=== PATIENT | female | born 1930 | race Caucasian/White ===

== ENCOUNTER 2016-07-25 19:35 | Inpatient (IN) | payer MEDICARE, BC ==
[~2016-07-25] VITALS: Ht 149.9 cm; Wt 64.8 kg
[2016-07-25] MEDS ORDERED: CEFTRIAXONE 1 GM VIAL ONE (22:19)
[2016-07-25] MEDS ORDERED: SODIUM CHLORIDE 0.9% 100 ML IV ONE (22:20)
[2016-07-25] MEDS ORDERED: PHARMACY TO DOSE LEVAQUIN IV SCH (23:45)
[2016-07-25] MEDS ORDERED: ONDANSETRON 4 MG VIAL IV PRN (23:45)
[2016-07-25] MEDS ORDERED: SODIUM CHLORIDE 0.9% 1,000 ML IV SCH (23:45)
[2016-07-25] MEDS ORDERED: SALINE FLUSH 10 ML FLUSH PRN (23:45)
[2016-07-26] VITALS (7 sets, daily range): BP systolic 117–168; RESP 18; TEMP 98.2–99.1; Ht 149.9 cm; Wt 64.8 kg
[2016-07-26] MEDS ORDERED: LEVOFLOXACIN 750 MG/150 ML 150 ML IV ONE (01:05)
[2016-07-26] MEDS ORDERED: *PINK BRACELET XX ONE (01:10)
[2016-07-26] MEDS: SALINE FLUSH 10 ML FLUSH SCH ×3 (01:41→20:40)
[2016-07-26] MEDS: SODIUM CHLORIDE 0.9% 1,000 ML IV SCH ×2 (01:42→16:05)
[2016-07-26] MEDS: SODIUM CHLORIDE 0.9% FLUSH BAG 500 ML IV SCH (06:00)
[2016-07-26] MEDS: *HOME MEDS KEPT IN PHARMACY XX SCH ×2 (08:00→20:00)
[2016-07-26] MEDS: ATENOLOL 50 MG TAB PO SCH (08:36)
[2016-07-26] MEDS: BUSPIRONE HCL 10 MG TAB PO SCH ×3 (08:36→20:40)
[2016-07-26] MEDS: ASPIRIN 81 MG CHEW TAB PO SCH (08:36)
[2016-07-26] MEDS: ATENOLOL 25 MG TAB PO SCH (17:26)
[2016-07-26] MEDS: TEMAZEPAM 15 MG CAP PO SCH (20:40)
[2016-07-26] MEDS: Atorvastatin 10 MG TAB PO SCH (20:40)
[2016-07-27] VITALS (7 sets, daily range): BP systolic 137–168; RESP 18–20; TEMP 98.4–99.3
[2016-07-27] MEDS: SODIUM CHLORIDE 0.9% FLUSH BAG 500 ML IV SCH (06:00)
[2016-07-27] MEDS: *HOME MEDS KEPT IN PHARMACY XX SCH ×2 (07:56→20:00)
[2016-07-27] MEDS: SALINE FLUSH 10 ML FLUSH SCH ×2 (07:57→20:00)
[2016-07-27] MEDS: ATENOLOL 50 MG TAB PO SCH (08:58)
[2016-07-27] MEDS: BUSPIRONE HCL 10 MG TAB PO SCH ×3 (08:58→20:09)
[2016-07-27] MEDS: ASPIRIN 81 MG CHEW TAB PO SCH (08:58)
[2016-07-27] MEDS: ENOXAPARIN 40 MG/0.4 ML SYR SUBQ SCH (10:16)
[2016-07-27] MEDS: ATENOLOL 25 MG TAB PO SCH (16:24)
[2016-07-27] MEDS: Atorvastatin 10 MG TAB PO SCH (20:09)
[2016-07-27] MEDS: TEMAZEPAM 15 MG CAP PO SCH (20:09)
[2016-07-27] MEDS ORDERED: LEVOFLOXACIN 750 MG/150 ML 150 ML IV SCH (21:00)
[2016-07-28] VITALS (10 sets, daily range): BP systolic 136–169; RESP 16–18; TEMP 98.2–98.8
[2016-07-28] MEDS: SODIUM CHLORIDE 0.9% 1,000 ML IV SCH (01:06)
[2016-07-28] MEDS: SODIUM CHLORIDE 0.9% FLUSH BAG 500 ML IV SCH (06:00)
[2016-07-28] MEDS: *HOME MEDS KEPT IN PHARMACY XX SCH ×2 (08:00→20:00)
[2016-07-28] MEDS: ATENOLOL 50 MG TAB PO SCH ×2 (09:00→17:42)
[2016-07-28] MEDS: ASPIRIN EC 81 MG TAB PO SCH (09:00)
[2016-07-28] MEDS: BUSPIRONE HCL 10 MG TAB PO SCH ×3 (10:57→21:59)
[2016-07-28] MEDS: ENOXAPARIN 40 MG/0.4 ML SYR SUBQ SCH (10:58)
[2016-07-28] MEDS: CLOPIDOGREL 75 MG TAB PO SCH (12:10)
[2016-07-28] MEDS ORDERED: KCL 20 MEQ/15 ML UDC PO ONE (14:15)
[2016-07-28] MEDS ORDERED: MISSING DOSE XX ONE (17:10)
[2016-07-28] MEDS: SALINE FLUSH 10 ML FLUSH SCH ×2 (17:42→21:58)
[2016-07-28] MEDS: ATENOLOL 25 MG TAB PO SCH (17:45)
[2016-07-28] MEDS: VALSARTAN 80 MG TAB PO SCH (21:00)
[2016-07-28] MEDS: TEMAZEPAM 15 MG CAP PO SCH (21:58)
[2016-07-28] MEDS: Atorvastatin 10 MG TAB PO SCH (21:58)
[2016-07-29 03:25] VITALS: BP_SYST 147; RESP 17; TEMP 98.2
[2016-07-29] MEDS: SODIUM CHLORIDE 0.9% FLUSH BAG 500 ML IV SCH (06:00)
[2016-07-29 07:29] VITALS: BP_SYST 150; RESP 16; TEMP 98.3
[2016-07-29] MEDS: *HOME MEDS KEPT IN PHARMACY XX SCH ×2 (08:00→20:00)
[2016-07-29] MEDS ORDERED: LEVOFLOXACIN 750 MG TAB PO SCH (09:00)
[2016-07-29] MEDS: SALINE FLUSH 10 ML FLUSH SCH ×2 (09:04→20:28)
[2016-07-29] MEDS: VALSARTAN 80 MG TAB PO SCH ×2 (09:04→20:28)
[2016-07-29] MEDS: ASPIRIN EC 81 MG TAB PO SCH (09:04)
[2016-07-29] MEDS: CLOPIDOGREL 75 MG TAB PO SCH (09:04)
[2016-07-29] MEDS ORDERED: MISSING DOSE XX ONE (09:05)
[2016-07-29] MEDS: ENOXAPARIN 40 MG/0.4 ML SYR SUBQ SCH (09:05)
[2016-07-29] MEDS: amLODIPine 10 MG TAB PO SCH (09:38)
[2016-07-29] MEDS: BUSPIRONE HCL 10 MG TAB PO SCH ×3 (09:38→20:28)
[2016-07-29 11:52] VITALS: BP_SYST 136; RESP 16; TEMP 98.2
[2016-07-29] MEDS: Carvedilol 6.25 MG TAB PO SCH ×2 (12:45→20:28)
[2016-07-29 16:21] VITALS: BP_SYST 122; RESP 20; TEMP 98.3
[2016-07-29] MEDS ORDERED: MIDAZOLAM 2 MG/2 ML INJ ONE (19:17)
[2016-07-29 19:37] VITALS: BP_SYST 141; RESP 16; TEMP 99.3
[2016-07-29] MEDS: Atorvastatin 10 MG TAB PO SCH (20:28)
[2016-07-29] MEDS: APIXABAN 5 MG TAB PO SCH (20:28)
[2016-07-29] MEDS: TEMAZEPAM 15 MG CAP PO SCH (20:28)
[2016-07-29 23:27] VITALS: BP_SYST 135; RESP 16; TEMP 98.9
[2016-07-30 02:48] VITALS: BP_SYST 132; RESP 16; TEMP 98.5
[2016-07-30] MEDS: SODIUM CHLORIDE 0.9% FLUSH BAG 500 ML IV SCH (06:00)
[2016-07-30 07:44] VITALS: BP_SYST 140; RESP 16; TEMP 98.5
[2016-07-30] MEDS: *HOME MEDS KEPT IN PHARMACY XX SCH ×2 (08:00→14:53)
[2016-07-30] MEDS: APIXABAN 5 MG TAB PO SCH (08:39)
[2016-07-30] MEDS: SALINE FLUSH 10 ML FLUSH SCH (08:39)
[2016-07-30] MEDS: amLODIPine 10 MG TAB PO SCH (08:39)
[2016-07-30] MEDS: VALSARTAN 80 MG TAB PO SCH (08:40)
[2016-07-30] MEDS: BUSPIRONE HCL 10 MG TAB PO SCH (08:40)
[2016-07-30] MEDS: Carvedilol 6.25 MG TAB PO SCH (08:40)
[2016-07-30 11:37] VITALS: BP_SYST 132; RESP 16; TEMP 98.2
[2016-07-30 15:20] VITALS: BP_SYST 132; RESP 16; TEMP 98.2
[2016-07-30 16:01] VITALS: BP_SYST 136; RESP 18; TEMP 98.1
[2016-08-01] MEDS ORDERED: ASPIRIN EC 81 MG TAB PO SCH (09:00)
== END 2016-07-30 16:13 | disposition home health service (06) | DRG 65 ==
LOC: ENRESERVTM → ENRESERVDT → ER 19:35 → ENPENDDIS 23:41 → EMR 23:41 → PCU2 07-26 00:50
PROVIDERS: ADMIT Family Medicine; ATTEND Family Medicine
PROC: B246ZZ4 Ultrasonography of Right and Left Heart, Transesophageal (ICD-10-PCS; principal; 2016-07-29)
DX: I63.9 Cerebral infarction, unspecified (principal); N39.0 Urinary tract infection, site not specified; I48.0 Paroxysmal atrial fibrillation; E86.1 Hypovolemia; I11.9 Hypertensive heart disease without heart failure; Z95.2 Presence of prosthetic heart valve; Z96.649 Presence of unspecified artificial hip joint; E87.6 Hypokalemia; Z79.82 Long term (current) use of aspirin
CPT/HCPCS: 36415; 70450; 70547; 70551; 71010; 80053; 80061; 81001; 82553; 82947; 83605; 83735; 84484; 85025; 85379; 85384; 85610; 85730; 87040; 87077; 87088; 87186; 93005; 93306; 93312; 93880; 96374; 99222; 99233; 99239